=== PATIENT | female | born 1985 | race Caucasian/White ===

== ENCOUNTER → 2017-05-26 | Outpatient (CLI) | payer OTHER ==
[~2017-05-26] MED LIST: ALLO100 PO; ALPR.5 PO; AZIT250 PO; Augmentin 875-1 EACH PO; BUPR150ER PO; Bactrim Ds Tab1 EACH PO; CLON.1 PO; COLCHICINE0.6 MG PO; Cyclobenzaprine5 MG PO; DICLO GEL1 EACH; Diclofenac Sodi50 MG PO; ESCI20 PO; Hydrocodone-Ap1 EA23 PO; IBUP800 PO; LABE100 PO; LISI20 PO; LISI5 PO; LORA1 PO; MELO7.5 PO; META800 PO; METO50 PO; MULVITMINE; Naprosyn500 MG PO; Norco 5-325 Ta1 EACH PO; ONDA4ODT PO; OXYACE5T PO; POLYETHYLENE G255 GM PO; POTCHL20ER PO; PRED10 PO; PROM25 PO; Percocet 5-3251 EACH PO; Prednisone20 MG PO; Pseudoephedrine30 MG PO; RIZATRIPTAN5 MG PO; RXSULTRIDS PO; Roxicodone5 MG PO; Solaraze100 GM TOP; TOPI50 PO; TRAM50 PO; Ultram50 MG PO; ZOLP5 PO; Zofran Odt4 MG SL
[2017-05-27 15:01] LABS: Cotinine Positive (NEG)
[2017-05-28 16:54] LABS: Methadone Metab. by GC/MS Not Detected (NOTDET)
[2017-05-28 22:03] LABS: Alpha Hyrdroxyalprazolam 86 ng/mL (NOTDET); Alpha hydroxytriazolam Not Detected (NOTDET); Alprazolam 40 ng/mL (NOTDET); Confirm Clonazepam LC/MS Not Detected (NOTDET); Confirm Flunitrazepam LC/MS Not Detected (NOTDET); Diazepam Not Detected (NOTDET); Flurazepam Not Detected (NOTDET); Lorazepam Not Detected (NOTDET); Midazolam Not Detected (NOTDET); Temazepam Not Detected (NOTDET)
== END ==
LOC: LAB 13:00
PROVIDERS: Nurse Practitioner Family
DX: F17.200 Nicotine dependence, unspecified, uncomplicated (principal); Z79.899 Other long term (current) drug therapy
CPT/HCPCS: G0480

== ENCOUNTER → 2017-05-31 | Outpatient (CLI) | payer OTHER ==
[2017-05-31 09:49] LABS: BASOPHILS ABSOLUTE AUTO 0.06 K/mm3 (0.00-0.23); BASOPHILS PERCENT AUTO 1 % (0-2); EOSINOPHILS ABSOLUTE AUTO 0.12 K/mm3 (0.00-0.68); EOSINOPHILS PERCENT AUTO 1 % (0-6); Hematocrit 40.8 % (33.0-51.0); Hemoglobin 13.8 g/dL (11.5-16.0); IMMATURE GRAN ABSOLUTE AUTO 0.01 K/mm3 (0.00-0.10); IMMATURE GRAN PERCENT AUTO 0 % (0-1); LYMPHOCYTES ABSOLUTE AUTO 1.89 K/mm3 (0.84-5.20); LYMPHOCYTES PERCENT AUTO 22 % (21-46); MONOCYTES ABSOLUTE AUTO 0.48 K/mm3 (0.16-1.47); MONOCYTES PERCENT AUTO 6 % (4-13); Mean Corpuscular HGB 32.2 pg (26.0-34.0); Mean Corpuscular HGB Conc 33.8 g/dL (31.5-36.5); Mean Corpuscular Volume 95 fL (80-100); Mean Platelet Volume 9.2 fL (9.1-12.4); NEUTROPHILS ABSOLUTE AUTO 6.13 K/mm3 (1.96-9.15); NEUTROPHILS PERCENT AUTO 71 % (41-73); Platelet Count 235 K/mm3 (150-400); RDW Coefficient Variation 12.4 % (11.7-14.2); RDW Standard Deviation 43.1 fL (35.1-46.3); Red Blood Cell Count 4.29 M/mm3 (3.80-5.20); White Blood Cell Count 8.69 K/mm3 (4.00-11.30)
[2017-05-31 10:01] LABS: Alanine Aminotransfer (ALT/SGP 33 U/L (12-78); Albumin, Blood 3.6 g/dL (3.4-5.0); Albumin/Globulin Ratio 0.9 (0.8-1.8); Alk Phos 60 U/L (40-126); Anion Gap 11 mmol/L (6-16); Aspartate Aminotrans (AST/SGOT 23 U/L (12-37); Bilirubin, Total 0.7 mg/dL (0.1-1.0); Blood Urea Nitrogen 11 mg/dL (8-24); Bun/Creatinine Ratio 13.9 (12.0-20.0); CO2, Blood 26 mmol/L (21-32); Calcium, Blood 8.8 mg/dL (8.5-10.1); Chloride, Blood 101 mmol/L (98-108); Creatinine, Blood 0.79 mg/dL (0.40-1.00); Glomerular Filtration Rate >60 (60-); Glucose, Blood 111 mg/dL (70-99); Potassium, Blood 3.9 mmol/L (3.5-5.5); Sodium, Blood 138 mmol/L (136-145); Total Protein, Blood 7.6 g/dL (6.4-8.2); Uric Acid, Blood 10.8 mg/dL (2.6-6.0)
== END ==
LOC: LAB SHORT 09:45
PROVIDERS: General Practice
DX: M67.971 Unspecified disorder of synovium and tendon, right ankle and foot (principal)
CPT/HCPCS: 80053; 84550; 85025; 85651

== ENCOUNTER → 2017-06-25 | Outpatient (CLI) | payer OTHER ==
[2017-06-29 16:41] LABS: Methadone Metab. by GC/MS 484 ng/mL (NOTDET)
== END ==
LOC: LAB 17:20
PROVIDERS: Registered Nurse
DX: Z51.81 Encounter for therapeutic drug level monitoring (principal); G89.29 Other chronic pain; Z79.899 Other long term (current) drug therapy
CPT/HCPCS: G0480

== ENCOUNTER 2017-07-22 08:33 | Emergency (ER) | payer OTHER ==
[~2017-07-22] VITALS: Ht 172.7 cm; Wt 117.9 kg
[~2017-07-22 08:33] MED LIST changes: -ALLO100 PO; -AZIT250 PO; -Augmentin 875-1 EACH PO; -BUPR150ER PO; -COLCHICINE0.6 MG PO; -DICLO GEL1 EACH; -Hydrocodone-Ap1 EA23 PO; -PRED10 PO; -Pseudoephedrine30 MG PO; -TOPI50 PO; -TRAM50 PO
[2017-07-22] MEDS ORDERED: AZIT250 PO (10:32)
[2017-07-22] MEDS ORDERED: COLCHICINE0.6 MG PO (10:32)
[2017-07-22] MEDS ORDERED: BUPR150ER PO (10:32)
[2017-07-22] MEDS ORDERED: Hydrocodone-Ap1 EA23 PO (10:33)
[2017-07-22 10:51] LABS: Influenza A Negative (NEGATIVE); Influenza B Negative (NEGATIVE)
[2017-07-22] MEDS ORDERED: Pseudoephedrine30 MG PO (11:05)
[2017-07-22] MEDS ORDERED: Norco 5-325 Ta1 EACH PO (11:05)
[2017-07-22] MEDS ORDERED: Augmentin 875-1 EACH PO (11:05)
[2017-07-22] MEDS ORDERED: Prednisone20 MG PO (11:05)
[2018-02-22] MEDS ORDERED: TOPI50 PO (09:19)
[2018-02-22] MEDS ORDERED: DICLO GEL1 EACH (09:20)
[2018-03-22] MEDS ORDERED: TOPI50 PO (11:55)
[2018-03-22] MEDS ORDERED: PRED10 PO (11:56)
[2018-03-22] MEDS ORDERED: TRAM50 PO (11:57)
== END 2017-07-22 11:58 | disposition home or self-care (01) ==
LOC: ER 08:33
PROVIDERS: Emergency Medicine
DX: J18.9 Pneumonia, unspecified organism (principal); M10.9 Gout, unspecified; Z79.899 Other long term (current) drug therapy; I10 Essential (primary) hypertension; Z87.891 Personal history of nicotine dependence
CPT/HCPCS: 36415; 71046; 87804; 96374; 96375; 99284; J0696; J2930

== ENCOUNTER → 2017-08-06 | Outpatient (CLI) | payer OTHER ==
[~2017-08-06] MED LIST changes: +AZIT250 PO; +Augmentin 875-1 EACH PO; +BUPR150ER PO; +COLCHICINE0.6 MG PO; +Hydrocodone-Ap1 EA23 PO; +Pseudoephedrine30 MG PO
[2017-08-06 10:55] LABS: BASOPHILS ABSOLUTE AUTO 0.06 K/mm3 (0.00-0.23); BASOPHILS PERCENT AUTO 1 % (0-2); EOSINOPHILS ABSOLUTE AUTO 0.09 K/mm3 (0.00-0.68); EOSINOPHILS PERCENT AUTO 1 % (0-6); Hematocrit 39.6 % (33.0-51.0); Hemoglobin 13.5 g/dL (11.5-16.0); IMMATURE GRAN ABSOLUTE AUTO 0.03 K/mm3 (0.00-0.10); IMMATURE GRAN PERCENT AUTO 0 % (0-1); LYMPHOCYTES ABSOLUTE AUTO 1.83 K/mm3 (0.84-5.20); LYMPHOCYTES PERCENT AUTO 23 % (21-46); MONOCYTES ABSOLUTE AUTO 0.49 K/mm3 (0.16-1.47); MONOCYTES PERCENT AUTO 6 % (4-13); Mean Corpuscular HGB 31.9 pg (26.0-34.0); Mean Corpuscular HGB Conc 34.1 g/dL (31.5-36.5); Mean Corpuscular Volume 94 fL (80-100); Mean Platelet Volume 9.5 fL (9.1-12.4); NEUTROPHILS ABSOLUTE AUTO 5.52 K/mm3 (1.96-9.15); NEUTROPHILS PERCENT AUTO 69 % (41-73); Platelet Count 249 K/mm3 (150-400); RDW Coefficient Variation 13.2 % (11.7-14.2); RDW Standard Deviation 44.6 fL (35.1-46.3); Red Blood Cell Count 4.23 M/mm3 (3.80-5.20); White Blood Cell Count 8.02 K/mm3 (4.00-11.30)
[2017-08-06 11:10] LABS: Alanine Aminotransfer (ALT/SGP 34 U/L (12-78); Albumin, Blood 3.5 g/dL (3.4-5.0); Albumin/Globulin Ratio 0.8 (0.8-1.8); Alk Phos 47 U/L (40-126); Anion Gap 10 mmol/L (6-16); Aspartate Aminotrans (AST/SGOT 13 U/L (12-37); Bilirubin, Total 0.4 mg/dL (0.1-1.0); Blood Urea Nitrogen 10 mg/dL (8-24); Bun/Creatinine Ratio 13.5 (12.0-20.0); CO2, Blood 29 mmol/L (21-32); Calcium, Blood 9.4 mg/dL (8.5-10.1); Chloride, Blood 102 mmol/L (98-108); Creatinine, Blood 0.74 mg/dL (0.40-1.00); Globulin, Blood 4.2 g/dL (2.2-4.0); Glomerular Filtration Rate >60 (60-); Glucose, Blood 121 mg/dL (70-99); Potassium, Blood 3.9 mmol/L (3.5-5.5); Sodium, Blood 141 mmol/L (136-145); Total Protein, Blood 7.7 g/dL (6.4-8.2)
== END ==
LOC: LAB SHORT 10:51 → LAB EV 10:51
PROVIDERS: General Practice
DX: J18.9 Pneumonia, unspecified organism (principal)
CPT/HCPCS: 80053; 85025

== ENCOUNTER 2017-08-28 08:26 | Day surgery (SDC) | payer OTHER ==
[~2017-08-28] VITALS: Ht 172.7 cm; Wt 116.1 kg
[2017-08-28] MEDS ORDERED: ALLO100 PO (10:21)
[2017-08-28] MEDS ORDERED: BUPR150ER PO (10:22)
== END 2017-08-28 14:29 | disposition home or self-care (01) ==
LOC: ORSCMMR 08:26
PROVIDERS: Surgery
PROC: 0WUF0JZ Supplement Abdominal Wall with Synthetic Substitute, Open Approach (ICD-10-PCS; principal; 2017-08-28 10:30)
DX: K43.2 Incisional hernia without obstruction or gangrene (principal); I10 Essential (primary) hypertension; F41.8 Other specified anxiety disorders; Z79.899 Other long term (current) drug therapy
CPT/HCPCS: C1781; J0690; J1100; J1170; J1885; J2250; J2405; J2710; J3010; J7120

== ENCOUNTER → 2019-10-26 | Outpatient (CLI) | payer OTHER ==
[~2019-10-26] MED LIST changes: +ALLO100 PO; +DICLO GEL1 EACH; +PRED10 PO; +TOPI50 PO; +TRAM50 PO
[2019-10-26 13:50] LABS: BASOPHILS ABSOLUTE AUTO 0.05 K/mm3 (0.00-0.23); BASOPHILS PERCENT AUTO 1 % (0-2); EOSINOPHILS ABSOLUTE AUTO 0.08 K/mm3 (0.00-0.68); EOSINOPHILS PERCENT AUTO 1 % (0-6); Hematocrit 36.5 % (33.0-51.0); Hemoglobin 12.2 g/dL (11.5-16.0); IMMATURE GRAN ABSOLUTE AUTO 0.01 K/mm3 (0.00-0.10); IMMATURE GRAN PERCENT AUTO 0 % (0-1); LYMPHOCYTES ABSOLUTE AUTO 1.65 K/mm3 (0.84-5.20); LYMPHOCYTES PERCENT AUTO 26 % (21-46); MONOCYTES ABSOLUTE AUTO 0.42 K/mm3 (0.16-1.47); MONOCYTES PERCENT AUTO 7 % (4-13); Mean Corpuscular HGB 32.2 pg (26.0-34.0); Mean Corpuscular HGB Conc 33.4 g/dL (31.5-36.5); Mean Corpuscular Volume 96 fL (80-100); NEUTROPHILS PERCENT AUTO 65 % (41-73); Platelet Count 200 K/mm3 (150-400); RDW Coefficient Variation 12.7 % (11.7-14.2); RDW Standard Deviation 44.6 fL (35.1-46.3); Red Blood Cell Count 3.79 M/mm3 (3.80-5.20); White Blood Cell Count 6.31 K/mm3 (4.00-11.30)
[2019-10-26 14:01] LABS: Alanine Aminotransfer (ALT/SGP 30 U/L (12-78); Albumin, Blood 3.2 g/dL (3.4-5.0); Albumin/Globulin Ratio 0.6 (0.8-1.8); Alk Phos 70 U/L (40-126); Anion Gap 10 mmol/L (6-16); Aspartate Aminotrans (AST/SGOT 32 U/L (12-37); Bilirubin, Total 0.4 mg/dL (0.1-1.0); Blood Urea Nitrogen 14 mg/dL (8-24); Bun/Creatinine Ratio 17.3 (12.0-20.0); CO2, Blood 26 mmol/L (21-32); Calcium, Blood 9.3 mg/dL (8.5-10.1); Chloride, Blood 105 mmol/L (98-108); Creatinine, Blood 0.81 mg/dL (0.40-1.00); Globulin, Blood 5.3 g/dL (2.2-4.0); Glomerular Filtration Rate >60 (60-); Glucose, Blood 101 mg/dL (70-99); Potassium, Blood 4.1 mmol/L (3.5-5.5); Sodium, Blood 141 mmol/L (136-145); Total Protein, Blood 8.5 g/dL (6.4-8.2)
== END | disposition home or self-care (01) ==
LOC: LAB EV 13:46 → LAB SHORT 13:46
PROVIDERS: Physician Assistant Medical
DX: R10.13 Epigastric pain (principal)
CPT/HCPCS: 80053; 83690; 85025

== ENCOUNTER → 2020-04-12 | Outpatient (CLI) | payer OTHER | END | disposition home or self-care (01) | LOC: LAB 15:00 | DX: N30.01 Acute cystitis with hematuria (principal) | CPT/HCPCS: 87077; 87086; 87186 ==

== ENCOUNTER → 2023-06-05 | Outpatient (CLI) | payer OTHER | END | disposition home or self-care (01) | LOC: LAB SHORT 20:19 → LAB 20:19 | DX: S81.801A Unspecified open wound, right lower leg, initial encounter (principal) | CPT/HCPCS: 87070; 87075; 87077; 87147; 87186; 87205 ==

== ENCOUNTER → 2023-06-06 | Outpatient (CLI) | payer OTHER ==
[2023-06-06 14:40] LABS: BASOPHILS ABSOLUTE AUTO 0.04 K/mm3 (0.00-0.23); BASOPHILS PERCENT AUTO 1 % (0-2); EOSINOPHILS ABSOLUTE AUTO 0.14 K/mm3 (0.00-0.68); EOSINOPHILS PERCENT AUTO 2 % (0-6); Hematocrit 37.7 % (33.0-51.0); Hemoglobin 12.2 g/dL (11.5-16.0); IMMATURE GRAN ABSOLUTE AUTO 0.07 K/mm3 (0.00-0.10); IMMATURE GRAN PERCENT AUTO 1 % (0-1); LYMPHOCYTES ABSOLUTE AUTO 0.97 K/mm3 (0.84-5.20); LYMPHOCYTES PERCENT AUTO 11 % (21-46); MONOCYTES ABSOLUTE AUTO 0.63 K/mm3 (0.16-1.47); MONOCYTES PERCENT AUTO 7 % (4-13); Mean Corpuscular HGB 27.4 pg (26.0-34.0); Mean Corpuscular HGB Conc 32.4 g/dL (31.5-36.5); Mean Corpuscular Volume 85 fL (80-100); Mean Platelet Volume 8.8 fL (9.1-12.4); NEUTROPHILS ABSOLUTE AUTO 6.74 K/mm3 (1.96-9.15); NEUTROPHILS PERCENT AUTO 79 % (41-73); Platelet Count 206 K/mm3 (150-400); RDW Coefficient Variation 14.6 % (11.7-14.2); RDW Standard Deviation 44.5 fL (35.1-46.3); Red Blood Cell Count 4.45 M/mm3 (3.80-5.20); White Blood Cell Count 8.59 K/mm3 (4.00-11.30)
[2023-06-06 14:46] LABS: Bun/Creatinine Ratio 15.5 (12.0-20.0); Calcium, Blood 9.4 mg/dL (8.5-10.1); Creatinine, Blood 1.03 mg/dL (0.40-1.00); Potassium, Blood 3.2 mmol/L (3.5-5.5)
== END | disposition home or self-care (01) ==
LOC: LAB 14:36 → LAB SHORT 14:36
PROVIDERS: Physician Assistant
DX: L03.115 Cellulitis of right lower limb (principal)
CPT/HCPCS: 80048; 85025